=== PATIENT | female | born 1955 | race Caucasian/White ===

== ENCOUNTER 2021-10-08 18:01 | Emergency (ER) | payer OTHER ==
[2021-10-08 18:06] VITALS: TEMP 97; BMI 23.0
[2021-10-08] MEDS ORDERED: SODIUM CHLORIDE 0.9% 500 ML INFUS.BAG IV ONE (19:36)
[2021-10-08 19:43] LABS: BASO % 0.3 % (0-2.0); EOS % 0.2 % (0-4.5); HEMOGLOBIN 14.1 GM/dL (10.7-15.3); LYMPH % 19.7 % (8-40); MCH 34.4 pg (25.7-33.7); MCHC 34.5 g/dl (32.0-36.0); MEAN CELL VOLUME 99.7 fl (80-96); MEAN PLT VOLUME 7.2 fl (7.5-11.1); NEUT % 72.8 % (42.8-82.8); PLATELET COUNT 285 10^3/uL (134-434); RBC 4.11 M/mm3 (3.60-5.2); RDW 12.7 % (11.6-15.6); WHITE BLOOD COUNT 7.9 K/mm3 (4.0-10.0)
[2021-10-08 20:05] LABS: CHLORIDE 102 mmol/L (98-107); SODIUM 136 mmol/L (136-145)
[2021-10-08 20:07] LABS: ALBUMIN 4.4 g/dl (3.4-5.0); ANION GAP 10 MMOL/L (8-16); BLOOD UREA NITROGEN 14.2 mg/dL (7-18); CALCIUM 9.5 mg/dL (8.5-10.1); CO2 24 mmol/L (21-32); GLUCOSE,RANDOM 91 mg/dL (74-106)
[2021-10-08 20:10] LABS: SGOT/AST 21 U/L (15-37); SGPT/ALT 23 U/L (13-61)
[2021-10-08 20:11] LABS: CREATININE 0.7 mg/dL (0.55-1.3)
[2021-10-08 20:12] LABS: BILIRUBIN,TOTAL 1.4 mg/dL (0.2-1); TOT PROT 7.2 g/dl (6.4-8.2)
[2021-10-08 20:13] LABS: ALK PHOS 102 U/L (45-117)
[2021-10-08] MEDS ORDERED: LISINOPRIL 5 MG TABLET PO ONE (20:27)
[2021-10-08] MEDS ORDERED: METOPROLOL TARTRATE 25 MG TABLET (FP) PO ONE (20:27)
[2021-10-08] MEDS ORDERED: METOPROLOL TARTRATE 25 MG TABLET (FP) ONE (20:30)
[2021-10-08] MEDS ORDERED: LISINOPRIL 5 MG TABLET ONE (20:30)
[2021-10-08 20:34] VITALS: BP 154/74; PULSE 108
[2021-10-08 20:35] LABS: PH,URINE 5.5 (5.0-8.0); URINE APPEARANCE CLEAR; URINE BILIRUBIN NEGATIVE (NEGATIVE); URINE COLOR YELLOW; URINE GLUCOSE (UA) NEGATIVE (NEGATIVE); URINE KETONE 2+ (NEGATIVE); URINE LEUK ESTERASE NEGATIVE (NEGATIVE); URINE NITRITE NEGATIVE (NEGATIVE); URINE PROTEIN NEGATIVE (NEGATIVE); URINE UROBILINOGEN 0.2 mg/dL (0.2-1.0)
[2021-10-08 20:43] LABS: EPI CELLS 27 /uL (0-25.1); HYALINE CASTS 7 /uL (0-3.1); URINE BACTERIA 9 /uL (0-1359); URINE RBC 8 /uL (0-23.9); URINE WBC 24 /uL (0-25.8)
== END 2021-10-08 21:38 | disposition home or self-care (01) ==
LOC: JER 18:01
DX: R00.2 Palpitations (principal)
CPT/HCPCS: 36415; 80053; 81003; 82550; 84439; 84443; 84484; 85025; 85379; 87086; 93005; 93010; 99284-25; C9803; U0003; U0005